=== PATIENT | female | born 1975 | race American Indian/Alaskan Native ===

== ENCOUNTER 2017-03-21 16:21 | Emergency (ER) | payer MEDICAID, OTHER ==
[2017-03-21 16:29] VITALS: BP 132/83; PULSE 84; RESP 18; TEMP 98.8; O2SAT 99
[2017-03-21] MEDS ORDERED: Fluorescein 1 mg Ophthalmic Strip OD STA (16:51)
[2017-03-21] MEDS ORDERED: Fluorescein 1 mg Ophthalmic Strip ONE (16:57)
--- NOTE | 2017-03-21 18:04 | C.PDOC ---
History Of Present Illness 41 y/o female presents to the ED with complaints of right eye irritation since yesterday. Pt states she was outside walking with tree pollen flying in the air which went into her eye. Pt reports irritation and tearing with onset redness today. Denies foreign body sensation, vision changes or any other complaints. Chief Complaint (Nursing): Eye Problem History Per: Patient History/Exam Limitations: no limitations Onset/Duration Of Symptoms: Hrs Current Symptoms Are (Timing): Still Present Injury To Eye?: No Severity: Mild Associated Symptoms: denies: Decreased Vision, FB Sensation Recent travel outside of the [place]: No Past Medical History Reviewed: Historical Data, Nursing Documentation, Vital Signs Vital Signs: Last Vital Signs Temp 98.8 F 03/21/17 16:29 Pulse 84 03/21/17 16:29 Resp 18 03/21/17 16:29 BP 132/83 03/21/17 16:29 Pulse Ox 99 03/21/17 18:05 Family History: States: Unknown Family Hx - Social History Hx Tobacco Use: Yes Hx Alcohol Use: Yes Hx Substance Use: Yes (marijuana) - Immunization History Hx Tetanus Toxoid Vaccination: No Hx Influenza Vaccination: No Hx Pneumococcal Vaccination: No Review Of Systems Except As Marked, All Systems Reviewed And Found Negative. Eyes: Positive for: Redness (right), Other (right eye irritation and tearing). Negative for: Vision Change Physical Exam - Physical Exam Appears: Non-toxic, No Acute Distress Skin: Warm, Dry, No Rash Head: Atraumatic, Normacephalic Eye(s): bilateral: PERRL, EOMI, right: Other (tearing, conjunctival injection, no drainage noted; fluoroscein uptake negative) Neurological/Psych: Oriented x3, Normal Speech ED Course And Treatment O2 Sat by Pulse Oximetry: 99 (room air) Pulse Ox Interpretation: Normal Disposition - Disposition Referrals: [facility] Stephania Restephy, [Non-Staff] - Disposition: HOME/ ROUTINE Disposition Time: 17:30 Condition: GOOD Additional Instructions: Thank you for letting us take care of you today. Your provider was Dr. Smith. You were treated for conjunctivitis. The emergency medical care you received today was directed at your acute symptoms. If you were prescribed any medication, please fill it and take as directed. It may take several days for your symptoms to resolve. Return to the Emergency Department if your symptoms worsen, do not improve, or if you have any other problems. Please contact your doctor or call one of the physicians/clinics you have been referred to that are listed on the Patient Visit Information form that is included in your discharge packet. Bring any paperwork you were given at discharge with you along with any medications you are taking to your follow up visit. Our treatment cannot replace ongoing medical care by a primary care provider (PCP) outside of the emergency department. Thank you for allowing the [facility] team to be part of your care today. Follow up with your doctor in 3-4 days for re-evaluation. Prescriptions: Polymyxin/Trimethoprim Sulfate [Polytrim Ophth Soln] 1 ml OD Q6 #1 bottle Instructions: Conjunctivitis (ED) - Clinical Impression Clinical Impression: Pain in eye - Scribe Statement The provider has reviewed the documentation as recorded by the Ira Meade Provider Attestation: All medical record entries made by the Ira were at my direction and personally dictated by me. I have reviewed the chart and agree that the record accurately reflects my personal performance of the history, physical exam, medical decision making, and the department course for this patient. I have also personally directed, reviewed, and agree with the discharge instructions and disposition.
== END 2017-03-21 17:25 | disposition home or self-care (01) ==
LOC: C.ER 16:21
DX: H57.11 Ocular pain, right eye (principal)

== ENCOUNTER 2018-05-11 11:34 | Emergency (ER) | payer MEDICAID, OTHER ==
[2018-05-11 11:55] VITALS: TEMP 98; O2SAT 99
--- NOTE | 2018-05-11 12:22 | C.PDOC ---
History Of Present Illness 42 y/o female with no sig pmhx c/o right posterior calf pain today when walking up steps at work with some pain in left posterior calf as well. pt sts feels like a muscle spasm/cramp she has had in past. no trauma to lower extremities. denies ocp use, recent surgery and prolonged immobilization. denies cp and sob. no fevers. Time Seen by Provider: 05/11/18 11:52 Chief Complaint (Nursing): Lower Extremity Problem/Injury History Per: Patient History/Exam Limitations: no limitations Onset/Duration Of Symptoms: Hrs Current Symptoms Are (Timing): Still Present Severity: Mild Past Medical History Reviewed: Historical Data, Nursing Documentation, Vital Signs Vital Signs: Last Vital Signs Temp 98.0 F 05/11/18 11:48 Pulse 75 05/11/18 12:49 Resp 18 05/11/18 12:49 BP 150/91 H 05/11/18 12:49 Pulse Ox 99 05/13/18 11:14 - Medical History PMH: No Chronic Diseases Family History: States: Unknown Family Hx - Social History Hx Tobacco Use: Yes Hx Alcohol Use: No Hx Substance Use: Yes (marijuana) - Immunization History Hx Tetanus Toxoid Vaccination: No Hx Influenza Vaccination: No Hx Pneumococcal Vaccination: No Review Of Systems Constitutional: Negative for: Fever, Chills Cardiovascular: Negative for: Chest Pain Respiratory: Negative for: Cough, Shortness of Breath Musculoskeletal: Positive for: Leg Pain (bilateral calf pain) Skin: Negative for: Rash, Bruising Neurological: Negative for: Weakness, Numbness Physical Exam - Physical Exam Appears: Non-toxic, No Acute Distress Skin: Warm, Dry Extremity: Normal ROM, No Pedal Edema, Calf Tenderness (bilateral right more than left. ), Capillary Refill (less than 2 seconds), No Swelling Pulses: Left Dorsalis Pedis: Normal, Right Dorsalis Pedis: Normal Neurological/Psych: Oriented x3, Normal Speech, Normal Cognition, Normal Motor, Normal Sensation ED Course And Treatment O2 Sat by Pulse Oximetry: 99 Medical Decision Making Medical Decision Making: pt with bilateral calf tenderness today; likely muscle cramps; get bilateral venous doppler le to r/o dvt. tylenol for pain. 1242 bilateral doppler lower ext neg for dvt, d/c home and f/u pmd. Disposition Counseled Patient/Family Regarding: Studies Performed, Diagnosis, Need For Followup - Disposition Referrals: [facility] [Outside] Disposition: HOME/ ROUTINE Disposition Time: 13:00 Condition: GOOD Additional Instructions: Drink increased fluids. Tylenol or Motrin for pain. Follow up in [facility]. Yojur blood pressure is elevated in the ER today- p;lease have that checked in your medical clinic in the next few days. Instructions: Muscle Spasms (DC), Nocturnal (Nighttime) Leg Cramps (DC) Forms: General Discharge Instructions, [facility] (Korean), Work Excuse - Clinical Impression Clinical Impression: Bilateral lower extremity pain
[2018-05-11 12:50] VITALS: BP 150/91; PULSE 75; RESP 18
--- NOTE | 2018-05-11 14:26 | VASCLAB ---
Date of service: 05/11/2018 PROCEDURE: Lower Extremity Venous Duplex Exam. HISTORY: bilateral posterior calf pain, r>l PRIORS: None. TECHNIQUE: Bilateral common femoral, femoral, popliteal and posterior tibial, peroneal and great saphenous veins were evaluated. Flow was assessed with color Doppler, compressibility, assessment of phasic flow and augmentation response. Report prepared by Alex Gómez, MENA, RVT FINDINGS: RIGHT: 1. Common Femoral Vein: 1.1. Compressibility - Fully compressible: Thrombus - None : Flow - Phasic: Augmentation -Normal: Reflux - None. 2. Femoral Vein: 2.1. Compressibility - Fully compressible: Thrombus - None : Flow - Phasic: Augmentation -Normal: Reflux - None. 3. Popliteal Vein: 3.1. Compressibility - Fully compressible: Thrombus - None : Flow - Phasic: Augmentation -Normal: Reflux - None. 4. Posterior Tibial Vein: 4.1. Compressibility - Fully compressible: Thrombus - None: Flow - Phasic: Augmentation -Normal: Reflux - None. 5. Peroneal Vein: 5.1. Compressibility - Fully compressible: Thrombus - None: Flow - Phasic: Augmentation -Normal: Reflux - None. 6. Great Saphenous Vein: 6.1. Compressibility - Fully compressible: Thrombus - None: Flow - Phasic: Augmentation - Normal: Reflux - None. LEFT: 1. Common Femoral Vein: 1.1. Compressibility - Fully compressible: Thrombus - None: Flow - Phasic: Augmentation -Normal: Reflux - None. 2. Femoral Vein: 2.1. Compressibility - Fully compressible: Thrombus - None: Flow - Phasic: Augmentation -Normal: Reflux - None. 3. Popliteal Vein: 3.1. Compressibility - Fully compressible: Thrombus - None : Flow - Phasic: Augmentation -Normal: Reflux - None. 4. Posterior Tibial Vein: 4.1. Compressibility - Fully compressible: Thrombus - None: Flow - Phasic: Augmentation -Normal: Reflux - None. 5. Peroneal Vein: 5.1. Compressibility - Fully compressible: Thrombus - None: Flow - Phasic: Augmentation -Normal: Reflux - None. 6. Great Saphenous Vein: 6.1. Compressibility - Fully compressible: Thrombus - None: Flow - Phasic: Augmentation - Normal: Reflux - None. OTHER FINDINGS: Right: None significant. Left: None significant. IMPRESSION: Right: No evidence of deep or superficial vein thrombosis of the right lower extremity. Normal valve function noted of the right side. Left: No evidence of deep or superficial vein thrombosis of the left lower extremity. Normal valve function noted of the left side.
== END 2018-05-11 13:04 | disposition home or self-care (01) ==
LOC: C.ER 11:34
DX: M79.604 Pain in right leg (principal); M79.605 Pain in left leg

== ENCOUNTER 2018-06-07 08:15 | Emergency (ER) | payer OTHER ==
[2018-06-07 08:24] VITALS: PULSE 91; RESP 18; TEMP 98.7; O2SAT 100
[2018-06-07 08:30] VITALS: BP 161/102
[2018-06-07] MEDS ORDERED: Acetaminophen-Codeine 300/30 mg Tab PO STA (08:43)
--- NOTE | 2018-06-07 08:45 | C.PDOC ---
History Of Present Illness 43 year old female presents to the emergency department with complaints of left lower mouth pain for the last two days. Patient states that she noticed bleeding when she was brushing her teeth. She states that she feels as if her mouth is swollen, and reports that the pain persists without chewing. Patient reports taking Motrin for the pain with no relief. Time Seen by Provider: 06/07/18 08:22 Chief Complaint (Nursing): Dental Pain History Per: Patient History/Exam Limitations: no limitations Onset/Duration Of Symptoms: Days (2) Current Symptoms Are (Timing): Still Present Quality: Positive for: "Pain" Past Medical History Reviewed: Historical Data, Nursing Documentation, Vital Signs Vital Signs: Last Vital Signs Temp 98.7 F 06/07/18 08:21 Pulse 91 H 06/07/18 08:21 Resp 18 06/07/18 08:21 BP 161/102 H 06/07/18 08:29 Pulse Ox 100 06/07/18 09:10 - Medical History PMH: No Chronic Diseases Surgical History: No Surg Hx Family History: States: No Known Family Hx - Social History Hx Tobacco Use: Yes Hx Alcohol Use: No Hx Substance Use: Yes (marijuana) - Immunization History Hx Tetanus Toxoid Vaccination: No Hx Influenza Vaccination: No Hx Pneumococcal Vaccination: No Review Of Systems ENT: Positive for: Mouth Pain, Mouth Swelling Physical Exam - Physical Exam Appears: Non-toxic, No Acute Distress Skin: Warm, Dry Head: Atraumatic, Normacephalic Eye(s): bilateral: Normal Inspection, EOMI Nose: Normal, No Flaring, No Discharge Oral Mucosa: Moist Tongue: Normal Appearing, No Swelling, No Lesions Lips: Normal Appearing, No Swelling Teeth: Normal Dentition, No Tender To Palpation, No Loose, No Avulsed Gingiva: No Erythema, No Ulceration, Swelling (to the left lower molars), Tender , No Bleeding, No Abscess Throat: Normal, No Erythema, No Exudate, No Drooling Neck: No Paracervical Tenderness, Supple Chest: Symmetrical Neurological/Psych: Oriented x3, Normal Speech, Normal Cognition ED Course And Treatment O2 Sat by Pulse Oximetry: 100 (RA) Pulse Ox Interpretation: Normal Medical Decision Making Medical Decision Making: Patient with left sided mouth pain and gingival swelling. No signs of acute abscess or injury. Penicillin and Tylenol #3 given. Patient was also hypertensive, unknown history. Advise follow up with dentist and PMD Disposition Counseled Patient/Family Regarding: Diagnosis, Need For Followup, Rx Given - Disposition Referrals: [facility] [Outside] Disposition: HOME/ ROUTINE Disposition Time: 09:10 Condition: GOOD Additional Instructions: It is important that you follow up with Dentist for further evaluation. Take medications as prescribed Also you were found to have high blood pressure, follow up with your primary doctor or clinic Prescriptions: Acetaminophen with Codeine [Tylenol with Codeine No. 3 300 mg-30 mg] 1 tab PO Q8 PRN #12 tab PRN Reason: Pain, Moderate (4-7) Ibuprofen [Motrin] 600 mg PO Q8 #30 tab Penicillin VK [Penicillin VK Tab] 1 tab PO BID #20 tab Instructions: Tooth Decay, Adult (DC), Gingivitis (DC) Forms: [employer] (Jordanian) - POA Present On Arrival: None - Clinical Impression Clinical Impression: Gingivitis, Dental caries - PA / DISK GRINDER / Resident Statement MD/DO has reviewed & agrees with the documentation as recorded. - Scribe Statement The provider has reviewed the documentation as recorded by the Scribe (Sim Bell) All medical record entries made by the Scribe were at my direction and personally dictated by me. I have reviewed the chart and agree that the record accurately reflects my personal performance of the history, physical exam, medical decision making, and the department course for this patient. I have also personally directed, reviewed, and agree with the discharge instructions and disposition.
[2018-06-07] MEDS ORDERED: Acetaminophen-Codeine 300/30 mg Tab PO ONE (08:51)
== END 2018-06-07 09:14 | disposition home or self-care (01) ==
LOC: C.ER 08:15
DX: K05.10 Chronic gingivitis, plaque induced (principal); K02.9 Dental caries, unspecified

== ENCOUNTER 2018-07-01 18:46 | Emergency (ER) | payer OTHER ==
[2018-07-01 18:58] VITALS: BP 146/99; PULSE 78; TEMP 99.1; O2SAT 98
--- NOTE | 2018-07-01 19:39 | C.PDOC ---
History Of Present Illness 43 y/o female with no significant PMH presents to the ED c/o sore throat x 3 days. Pt has had gradual worsening of sore throat and swollen neck over the last few days with associated sinus congestion. Pt has not taken anything for her symptoms. Denies fever, chills, dizziness, N/V, abdominal pain, diarrhea, cough, difficulty breathing, difficulty swallowing, ear pain, rhinorrhea. NKDA Chief Complaint (Nursing): ENT Problem History Per: Patient History/Exam Limitations: no limitations Onset/Duration Of Symptoms: Days Current Symptoms Are (Timing): Worse Location Of Pain: Throat Past Medical History Reviewed: Historical Data, Nursing Documentation, Vital Signs Vital Signs: Last Vital Signs Temp 99.1 F 07/01/18 18:56 Pulse 78 07/01/18 18:56 Resp 18 07/01/18 18:56 BP 146/99 H 07/01/18 18:56 Pulse Ox 98 07/01/18 20:07 - Medical History PMH: No Chronic Diseases Family History: States: Unknown Family Hx - Social History Hx Tobacco Use: Yes Hx Alcohol Use: Yes Hx Substance Use: Yes (marijuana) - Immunization History Hx Tetanus Toxoid Vaccination: No Hx Influenza Vaccination: No Hx Pneumococcal Vaccination: No Review Of Systems Constitutional: Positive for: Malaise. Negative for: Fever, Chills, Sweats, Weakness Eyes: Negative for: Pain, Vision Change, Conjunctivae Inflammation, Redness ENT: Positive for: Throat Pain. Negative for: Ear Pain, Ear Discharge, Nose Pain, Nose Discharge, Nose Congestion, Mouth Pain, Mouth Swelling Cardiovascular: Negative for: Chest Pain, Palpitations, Light Headedness Respiratory: Negative for: Cough, Shortness of Breath Gastrointestinal: Negative for: Nausea, Vomiting, Abdominal Pain, Diarrhea Musculoskeletal: Negative for: Neck Pain, Back Pain Skin: Negative for: Rash Neurological: Negative for: Weakness, Dizziness Physical Exam - Physical Exam Appears: Well, Non-toxic, No Acute Distress Skin: Normal Color, Warm, Dry, No Rash Head: Atraumatic, Normacephalic, No Tenderness, No Swelling Eye(s): bilateral: Normal Inspection, PERRL, EOMI Ear(s): Bilateral: Other (fluid behind TM) Nose: Normal, No Discharge Oral Mucosa: Moist Tongue: Normal Appearing Lips: Normal Appearing Teeth: Normal Dentition Gingiva: Normal Appearing Throat: Normal, No Erythema, No Exudate Neck: Normal ROM Lymphatic: Adenopathy (enalarged, nontender peritonsillar lymph nodes bilaterally) Cardiovascular: Rhythm Regular Respiratory: Normal Breath Sounds, No Accessory Muscle Use, No Rales, No Rhonchi , No Wheezing Neurological/Psych: Oriented x3, Normal Speech, Normal Cognition ED Course And Treatment O2 Sat by Pulse Oximetry: 98 Medical Decision Making Medical Decision Makin43 y/o female with no significant PMH presents to the ED c/o sore throat x 3 days. Pt has had gradual worsening of sore throat and swollen neck over the last few days with associated sinus congestion. Pt has not taken anything for her symptoms. She is most worried about having strep throat. Denies fever, chills, dizziness, N/V, abdominal pain, diarrhea, cough, difficulty breathing, difficulty swallowing, ear pain, rhinorrhea. Physical exam significant for fluid behind bilateral TMs and bilateral swollen, nontender peritonsillar lymph nodes. Lungs clear, throat without erythema or tonsillar swelling/exudates. Otherwise normal. Will order rapid strep. Will prescribe Mucinex and Flonase for symptomatic treatment Rapid strep: Negative Educated pt on appropriate antibiotic use Educated pt on dangers of chronically elevated blood pressure Advised pt to followup in clinic as needed Impression: Sinus Congestion, Viral syndrome Plan: Take 2 sprays flonase per nostril every morning Take 1-2 pills Mucinex every 12 hours for 4 days Followup with clinic for BP checks Return to ED if symptoms persist or worsen Plan discussed with pt who agrees and understands. Pt comfortable with discharge home. Disposition - Disposition Referrals: [facility] [Outside] Disposition: HOME/ ROUTINE Disposition Time: 20:00 Condition: GOOD Additional Instructions: 2 sprays flonase per nostril every morning Take 1-2 tabs of Mucinex every 12h as needed, do not take more than 4 pills a day Followup in clinic for BP checks Return to ED if symptoms persist or worsen Prescriptions: Fluticasone Propionate [Flonase] 2 spr NS DAILY #1 spr Guaifenesin [Mucinex] 600 mg PO Q12H #16 tab.er.12h Instructions: High Blood Pressure in Adults Forms: [facility] (Belarusian) - Clinical Impression Clinical Impression: Sinus congestion, Elevated blood pressure reading
[2018-07-01 20:17] VITALS: RESP 20
== END 2018-07-01 20:16 | disposition home or self-care (01) ==
LOC: C.ER 18:46
DX: R09.81 Nasal congestion (principal); R03.0 Elevated blood-pressure reading, without diagnosis of hypertension